=== PATIENT | male | born 1985 | race Caucasian/White ===

== ENCOUNTER 2018-08-09 03:13 | Emergency (ER) | payer OTHER ==
[~2018-08-09] VITALS: Ht 185.4 cm; Wt 130.0 kg
[2018-08-09 03:15] VITALS: Ht 185.4 cm; Wt 130.0 kg
[2018-08-09] MEDS ORDERED: LORAZEPAM 2 MG INJ IM STA (03:18)
[2018-08-09] MEDS ORDERED: HALOPERIDOL 5 MG INJ ONE (03:18)
[2018-08-09] MEDS ORDERED: HALOPERIDOL 5 MG INJ IM STA (03:18)
[2018-08-09] MEDS ORDERED: LORAZEPAM 2 MG INJ ONE (03:18)
--- NOTE | 2018-08-09 03:46 | PSY ---
Date/Time of Note Date/Time of Note DATE: 08/09/18 TIME: 03:45 Psychiatric Subjective Eval Consent Pt consented to telemedicine: Yes Subjective Evaluation Patient location: emergency Assessment and Plan Recommendation/Plan Discharge Disposition: Psychiatric inpatient Legal Status: Place involuntary hold Assessment Additional comments: IDENTIFYING INFORMATION: 32 year old [place]ian Male patient who is currently located at the hospital and for whom psychiatric consultation was requested. SOURCES OF INFORMATION: The patient who appears to be unreliable and the medical records; the nursing staff. Domo Carey, cousin, who appears to be reliable. CHIEF COMPLAINT: "way too long, way too long, Du, Du, 100 free, 100 feet". HISTORY OF PRESENT ILLNESS: The patient was interviewed via telemedicine in the presence of and under the supervision of nursing staff of the hospital. The consent to conducting this interview via telemedicine was obtained by the nursing staff at the hospital. MACK Grullon reports that the patient presented with AH, was hitting himself and threatening the family. Is not on a 5150 hold. The patient reports having AH, delusions of people trying to kill him. Keeps repeating Du, never, Du. The patient denies having SI. Cousin reports that the pt has been becoming aggressive, yelling, screaming, was hitting himself, punched himself. The patient denies using alcohol heavily or regularly. The patient denies using any other substances. In terms of past psychiatric history, the patient reports having a history of no past psychiatric hospitalizations. The patient reports having a history of no past suicide attempts. Past medication trials: none. PAST MEDICAL HISTORY: HTN. CURRENT MEDICATIONS: none. ALLERGIES TO MEDICATIONS: NKDA. LABORATORY TESTS: pending. SOCIAL HISTORY: lives with parents, single, no kids, not employed. REVIEW OF SYSTEMS: Constitutional (e.g., fever, weight loss): negative; Eyes, Ears, Nose, Mouth, Throat: negative; Cardiovascular: negative; Respiratory: negative; Gastrointestinal: negative; Genitourinary: negative; Musculoskeletal: negative; Integumentary (skin and/or breast): negative; Neurological: negative; Psychiatric: as per HPI; Endocrine: negative; Hematologic/Lymphatic: negative; Allergic/Immunologic: negative. MENTAL STATUS EXAMINATION: General Appearance and Behavior: Agitated, appears to be responding to internal stimuli, uncooperative with most of the interview, distant with the current interviewer, makes poor eye contact, poorly groomed, increased psychomotor activity, no abnormal movements noted. Speech: Normal rate, regular rhythm, normal latency, normal volume, increased amount, Flow of thought: tangential, illogical, not goal-directed. Content of thought: + auditory hallucinations, + paranoid delusions, no visual hallucinations, no suicidal ideation; no homicidal ideation. Mood: "OK". Affect: agitated, decreased range of reactivity. Attention: normal based on the interview. Insight: poor. Judgment: poor. Memory: normal based on the interview. Sensorium: alert and oriented to person, date, place. ASSESSMENT: The patient's presentation and history are consistent with the diagnosis of unspecified psychotic disorder. The patient presents with new onset of psychosis in the context of not receiving treatment, psychosocial stressors. PLAN: - Medication management: Would start risperidone 1 mg po qhs. Would start haloperidol 5 mg IM PRN severe agitation q4 hours. Would start diphenhydramine 50 mg IM PRN severe agitation q4 hours. Would start lorazepam 2 mg IM PRN severe agitation q4 hours Will defer to the inpatient psychiatry team for other medication changes. - Labs: Please check CBC, CMP, Alcohol level, UDS. The patient has reportedly completed head CT imaging in an outside facility, and it was normal. - Psychotherapy: Provided supportive psychotherapy and psychoeducation. - Disposition: Would recommend involuntary admission to the inpatient psychiatric unit given the severity of the patient's psychiatric condition and the fact that the patient is an imminent danger to self and/or others so long as the patient has been cleared medically for admission to psychiatry. Inpatient psychiatric admission is at this time the least restrictive environment where the patient can receive the psychiatric care that is needed. Would place on suicide precautions. The patient fulfills criteria for being placed on an involuntary hold for being a danger to self due to a psychiatric disorder. Discussed about the above plan with Dr. Morris. WILLIE CAT MD Aug 09, 2018 03:46
[2018-08-09] MEDS: RISPERIDONE 1 MG TAB PO ONE (04:00)
--- NOTE | 2018-08-09 05:38 | ERD ---
ER Documentation Chief Complaint Chief Complaint BIBA for ALOC x 3-4 days HPI Patient is a 32-year-old male with hypertension but no history of psychiatric disease who presents brought in by ambulance. He keeps repeating himself and was laying on the ground. He was hitting himself in the head over and over again per the father. This started 4-5 days ago. He never had this before. He was at [facility] today and was told that he had new onset autism. He had a recent CT scan done over the past few days which was negative per the father. Upon review of old medical records this is the patient's first visit to the emergency department. He does not currently have a primary doctor. ROS All systems reviewed and are negative except as per history of present illness. Medications Home Meds No Active Prescriptions or Reported Meds Allergies Allergies: Coded Allergies: No Known Allergy (Unverified , 08/09/18) PMhx/Soc Medical and Surgical Hx: pt denies Medical Hx, pt denies Surgical Hx Hx Alcohol Use: No Hx Substance Use: No Hx Tobacco Use: No Smoking Status: Never smoker FmHx Family History: No diabetes Physical Exam Vitals Vital Signs Date Temp Pulse Resp B/P (MAP) Pulse Ox O2 O2 Flow FiO2 Time Delivery Rate 08/09/18 99.0 112 24 145/92 97 03:15 (109) Physical Exam Const: Moderate distress Head: Atraumatic Eyes: Normal Conjunctiva ENT: Normal External Ears, Nose and Mouth. Neck: Full range of motion. No meningismus. Resp: Clear to auscultation bilaterally Cardio: Regular rate and rhythm, no murmurs Abd: Soft, non tender, non distended. Normal bowel sounds Skin: No petechiae or rashes Back: No midline or flank tenderness Ext: No cyanosis, or edema Neur: Awake but yelling Psych: Repeating words over and over, appears to have flight of ideas, new onset psychosis Result Diagram: 08/09/1844708/09/18447 Results 24 hrs Laboratory Tests Test 08/09/18 04:48 White Blood Count 11.4 10^3/ul Red Blood Count 4.36 10^6/ul Hemoglobin 13.8 g/dl Hematocrit 39.9 % Mean Corpuscular Volume 91.5 fl Mean Corpuscular Hemoglobin 31.7 pg Mean Corpuscular Hemoglobin Concent 34.6 g/dl Red Cell Distribution Width 12.5 % Platelet Count 195 10^3/UL Mean Platelet Volume 10.2 fl Immature Granulocytes % 0.400 % Neutrophils % 83.4 % Lymphocytes % 8.7 % Monocytes % 7.0 % Eosinophils % 0.1 % Basophils % 0.4 % Nucleated Red Blood Cells % 0.0 /100WBC Immature Granulocytes # 0.050 10^3/ul Neutrophils # 9.5 10^3/ul Lymphocytes # 1.0 10^3/ul Monocytes # 0.8 10^3/ul Eosinophils # 0.0 10^3/ul Basophils # 0.0 10^3/ul Nucleated Red Blood Cells # 0.0 10^3/ul Sodium Level 140 mmol/L Potassium Level Pending Chloride Level 107 mmol/L Carbon Dioxide Level 26 mmol/L Anion Gap 7 Blood Urea Nitrogen 17 mg/dl Creatinine 0.69 mg/dl Est Glomerular Filtrat Rate mL/min > 60 mL/min Glucose Level 102 mg/dl Calcium Level 9.6 mg/dl Total Bilirubin 1.1 mg/dl Direct Bilirubin 0.00 mg/dl Indirect Bilirubin 1.1 mg/dl Aspartate Amino Transf (AST/SGOT) 47 IU/L Alanine Aminotransferase (ALT/SGPT) 44 IU/L Alkaline Phosphatase 90 IU/L Total Protein 7.2 g/dl Albumin 4.3 g/dl Globulin 2.90 g/dl Albumin/Globulin Ratio 1.48 Salicylates Level < 1.0 mg/dl Acetaminophen Level < 10.0 ug/ml Ethyl Alcohol Level < 10.0 mg/dl Current Medications Medications Dose Sig/Deonna Start Time Status Last (Trade) Ordered Route PRN Stop Time Admin Dose Reason Admin Lorazepam 2 mg ONCE STAT 08/09/18 DC (Ativan) IM 03:18 08/09/18 03:19 Haloperidol 5 mg ONCE STAT 08/09/18 DC (Haldol) IM 03:18 08/09/18 03:19 Risperidone 1 mg ONCE ONCE 08/09/18 DC (Risperdal) PO 04:00 08/09/18 04:01 Risperidone 1 mg QHS PO 08/09/18 (Risperdal) 21:00 Procedures/MDM Patient is a 32-year-old male who presents with what appears to be new onset psychosis. The patient is medically cleared. He was recommended 5150 hold by psychiatry. The patient was given Haldol and Ativan in the emergency department for his safety and safety of staff. The patient was also recommended Risperdal by psychiatry which I have ordered. The patient will be signed out to the oncoming physician. He will benefit from inpatient psychiatry. CT brain done just a few days ago was negative per the father. Departure Diagnosis: Primary Impression: Psychosis Psychosis type: unspecified psychosis type Qualified Codes: F29 - Unspecified psychosis not due to a substance or known physiological condition Condition: ALBERTO Allen MD Aug 09, 2018 05:38
[2018-08-09 10:39] VITALS: BP 135/79; PULSE 116; RESP 18
[2018-08-09] MEDS ORDERED: RISPERIDONE 1 MG TAB PO SCH (21:00)
== END 2018-08-09 10:57 ==
LOC: E/R 03:13
DX: F29 Unspecified psychosis not due to a substance or known physiological condition (principal); I10 Essential (primary) hypertension; R40.2142 Coma scale, eyes open, spontaneous, at arrival to emergency department
CPT/HCPCS: 36415; 80053; 80306; 80307; 81001; 85025; 96372; Z7502; Z7610; 81003; J1630; J2060